=== PATIENT | female | born 1990 | race Caucasian/White ===

== ENCOUNTER → 2023-01-22 08:45 | Outpatient (BNVA) | payer BC, SELFPAY | PROVIDERS: PCP Family Medicine; Visit Provider Family Medicine | DX: E66.9 Obesity, unspecified (principal); F41.9 Anxiety disorder, unspecified; Z76.89 Persons encountering health services in other specified circumstances | CPT/HCPCS: 80053; 80061; 83036; 84443 ==

== ENCOUNTER → 2023-08-11 08:46 | Outpatient (BNVA) | payer BC, SELFPAY | PROVIDERS: PCP Family Medicine; Visit Provider Family Medicine | DX: Z12.4 Encounter for screening for malignant neoplasm of cervix (principal); Z01.419 Encounter for gynecological examination (general) (routine) without abnormal findings; E66.9 Obesity, unspecified | CPT/HCPCS: 87491; 87591; 87624 ==